=== PATIENT | female | born 1975 | race Caucasian/White ===

== ENCOUNTER 2018-01-22 14:25 | Outpatient (CLI) | payer MEDICARE ==
[~2018-01-22 14:25] MED LIST: Gadobenate Dimeglumine 529 MG/1 ML (20ML VIAL) ONE
--- NOTE | 2018-01-22 17:21 | MRI ---
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 COMPARISON: 05/14/06 and 05/07/06. FINDINGS: No restricted diffusion is seen. No evidence of infarct, hemorrhage, mass, midline shift, or abnormal extra-axial fluid collections are seen. The ventricular size is normal and the basilar cisterns are patent. No abnormal postcontrast enhancement is seen. The medial temporal lobes are bilaterally symme tric. The visualized paranasal sinuses and mastoid air cells are well aerated. The current exam was not performed using the pituitary protocol. Hence, the small microadenoma noted on the exam of 05/14/06 cannot be evaluated on this study. IMPRESSION: Unremarkable exam. The previously noted pituitary microadenoma cannot be evaluated on this study. If clinically indicated, exam should be repeated using the pituitary protocol. POS: [facility]
== END 2018-01-22 14:26 | disposition home or self-care (01) ==
LOC: BICMRI 14:25
PROVIDERS: ATTEND Psychiatry & Neurology Neurology
DX: G40.209 Localization-related (focal) (partial) symptomatic epilepsy and epileptic syndromes with complex partial seizures, not intractable, without status epilepticus (principal)
CPT/HCPCS: 70553; A9579